=== PATIENT | male | born 1980 | race Caucasian/White ===

== ENCOUNTER 2020-10-13 10:45 | Outpatient (RCR) | payer BC, SELFPAY | END 2020-10-13 17:30 | disposition home or self-care (01) | LOC: PT.CARL 10:45 | PROVIDERS: PCP Nurse Practitioner Family; Visit Provider Nurse Practitioner Family | DX: M54.5 Low back pain (principal) | CPT/HCPCS: 97010; 97014; 97110; 97163; G0283 ==

== ENCOUNTER 2022-10-29 07:00 | Outpatient (RCR) | payer OTHER, SELFPAY | END 2022-12-03 16:35 | disposition home or self-care (01) | LOC: PT 07:00 | PROVIDERS: Visit Provider Nurse Practitioner Family | DX: S16.1XXS Strain of muscle, fascia and tendon at neck level, sequela (principal) | CPT/HCPCS: 20560; 97010; 97014; 97035; 97110; 97112; 97163; 97164; G0283 ==